=== PATIENT | female | born 1970 | race African-American/Black ===

== ENCOUNTER 2018-06-27 12:19 | Emergency (ER) | payer OTHER ==
--- NOTE | 2018-06-27 13:02 | CT ---
Head CT without contrast 06/27/2018: COMPARISON: none HISTORY: Fall, trauma, pain TECHNIQUE: Axial CT imaging at 5 mm intervals from vertex through skull base without contrast FINDINGS: Imaged paranasal sinuses and mastoid air cells are well aerated. No displaced calvarial fra cture. No intracranial hemorrhage, midline shift, mass effect, or ventricular enlargement. IMPRESSION: No acute findings.
[2018-06-27] MEDS ORDERED: Acetaminophen 500 MG TAB ONE (13:03)
== END 2018-06-27 14:08 | disposition home or self-care (01) ==
LOC: ERS 12:19
DX: S06.0X0A Concussion without loss of consciousness, initial encounter (principal); S00.83XA Contusion of other part of head, initial encounter; I10 Essential (primary) hypertension; W18.09XA Striking against other object with subsequent fall, initial encounter
CPT/HCPCS: 70450